=== PATIENT | female | born 1970 | race Caucasian/White ===

== ENCOUNTER 2018-04-22 13:43 | Emergency (ER) | payer OTHER, MEDICAID ==
[2018-04-22] MEDS: ONDANSETRON 4 MG INJ IV (16:10)
[2018-04-22] MEDS: METHYLPREDNISOLONE 125 MG INJ IV (16:16)
[2018-04-22] MEDS: KETOROLAC 30 MG INJ IV (16:19)
[2018-04-22] MEDS: HYDROmorphONE 1 MG/ML SYG IV (16:23)
== END 2018-04-22 18:05 | disposition home or self-care (01) ==
LOC: E/R 13:43
DX: M54.12 Radiculopathy, cervical region (principal); M54.2 Cervicalgia
CPT/HCPCS: 81025; 93005; 96374; 96375; 99284-25